=== PATIENT | male | born 1965 ===

== ENCOUNTER 2016-11-21 17:03 | Emergency (ER) | payer OTHER ==
[2016-11-21 17:06] VITALS: RESP 18
--- NOTE | 2016-11-21 18:23 | C.PDOC ---
History Of Present Illness 51 yr old male brought in via BLS, presents to the ER stating he was climbing up side of building to get to open window purportedly for 2 children who lived in that apt and didnt have keys. pt sts he lost his balance and fell, landing on his left foot and twisting it. Patient reports of pain with weight bearing. Patient denies head trauma, loc, back pain, leg pain, headache, neck pain, weakness, numbness or tingling sensation.pt unable to give clear story, unable to give clear distance fallen., sts approx 6 feet. 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) Past Medical History Reviewed: Historical Data, Nursing Documentation, Vital Signs Vital Signs: Last Vital Signs Temp 98.7 F 11/21/16 19:26 Pulse 84 11/21/16 19:26 Resp 18 11/21/16 19:26 BP 123/74 11/21/16 19:26 Pulse Ox 100 11/22/16 00:03 - Medical History PMH: Asthma Surgical History: No Surg Hx Family History: States: No Known Family Hx - Social History Hx Tobacco Use: No Hx Alcohol Use: Yes Hx Substance Use: No - Immunization History Hx Tetanus Toxoid Vaccination: No Hx Influenza Vaccination: No Hx Pneumococcal Vaccination: No Review Of Systems Except As Marked, All Systems Reviewed And Found Negative. Constitutional: Negative for: Fever, Chills Cardiovascular: Negative for: Chest Pain Respiratory: Negative for: Cough Gastrointestinal: Negative for: Abdominal Pain Musculoskeletal: Positive for: Foot Pain (Left foot ). Negative for: Neck Pain , Back Pain, Leg Pain Neurological: Negative for: Weakness, Numbness, Headache Physical Exam - Physical Exam Appears: Well, Non-toxic, No Acute Distress, Unkempt Skin: Warm, Dry, No Rash, Other (flaky skin on legs) Head: Atraumatic, Normacephalic Nose: Normal Oral Mucosa: Moist Neck: Normal, Normal ROM, No Midline Cervical Tenderness, No Paracervical Tenderness, Supple Chest: Symmetrical, No Tenderness Cardiovascular: Rhythm Regular, No Murmur Respiratory: Normal Breath Sounds, No Rales, No Rhonchi, No Stridor, No Wheezing Back: Normal Inspection, No CVA Tenderness, No Paraspinal Tenderness Extremity: Normal ROM, Tenderness (Left Lower Extremity - Mild medial malleolus swelling ), No Calf Tenderness, No Deformity, Swelling (Left Lower Extremity - Mild medial malleolus tenderness), Other (No 5th metatarcel tenderness) Pulses: Left Dorsalis Pedis: Normal, Right Dorsalis Pedis: Normal Neurological/Psych: Oriented x3, Normal Speech, Normal Motor, Normal Sensation, Normal Reflexes Gait: Steady ED Course And Treatment O2 Sat by Pulse Oximetry: 100 - Other Rad X-Ray - Left Ankle X-Ray: Viewed By Me, Read By Radiologist Interpretation: PROCEDURE: Left Ankle Radiographs. HISTORY: lat mal pain s/p fall. COMPARISON: None. FINDINGS: BONES: No acute fracture. Cortical irregularity in the calcaneus. In the clinical scenario of trauma out to this region fracture should be considered. However, the the clinical history explicitly states lateral malleolar pain. JOINTS: Normal. No osteoarthritis. Ankle mortise maintained. Talar dome intact. SOFT TISSUES: Normal. OTHER FINDINGS: None. IMPRESSION: Unremarkable distal tibia, fibula, talus. Cortical irregularity in the calcaneus which requires further evaluation/ clarification with clinical presentation. In the absence of severe trauma such as a fall, this is likely not telesales representative an acute fracture. Medical Decision Making Medical Decision Making: PLAN: * X-Ray - Left Ankle * [place] 1013 pm pt with suspiciious looking area on lefl calcaneous on xray; though pt reports no tenderness, details of his fall today unclear. ct ordered. pt has been waliing in out and out ed waiting for results of ct scan.. pt had been given earlier crutches and marie bandage to left foot and is non weightbearing. pt not fou d in ed at time of receipt of ct scan results. 1024 pm pt not in ed. message left with sister sathish at [phone] for patient to return to ED. message left with patient's cousin Karissa at [phone], that pt needs to return to ED. Karissa said she would contact his girlfirend and left her know. no other phone numbers found for pt. charge rochelle Dominguez notified. Disposition - Disposition Disposition: ELOPEMENT - ER ONLY Disposition Time: 22:00 Condition: STABLE Forms: General Discharge Instructions - Clinical Impression Clinical Impression: Calcaneal fracture - PA / TECHNICAL WRITING LEAD/MGR / Resident Statement MD/DO has reviewed & agrees with the documentation as recorded. - Scribe Statement The provider has reviewed the documentation as recorded by the Scribe Krystal Sahni All medical record entries made by the Amberibe were at my direction and personally dictated by me. I have reviewed the chart and agree that the record accurately reflects my personal performance of the history, physical exam, medical decision making, and the department course for this patient. I have also personally directed, reviewed, and agree with the discharge instructions and disposition.
--- NOTE | 2016-11-21 18:53 | RAD ---
PROCEDURE: Left Ankle Radiographs. HISTORY: lat mal pain s/p fall COMPARISON: None FINDINGS: BONES: No acute fracture. Cortical irregularity in the calcaneus. In the clinical scenario of trauma out to this region fracture should be considered. However, the the clinical history explicitly states lateral malleolar pain JOINTS: Normal. No osteoarthritis. Ankle mortise maintained. Talar dome intact SOFT TISSUES: Normal. OTHER FINDINGS: None. IMPRESSION: Unremarkable distal tibia, fibula, talus. Cortical irregularity in the calcaneus which requires further evaluation/ clarification with clinical presentation. 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
[2016-11-21 19:27] VITALS: BP 123/74; PULSE 84; TEMP 98.7
[2016-11-21 22:09] VITALS: O2SAT 100
--- NOTE | 2016-11-22 09:57 | CT ---
PROCEDURE: CT of the left ankle and foot. HISTORY: eval for calacaneal fracture COMPARISON: Comparison is made to the previous x-ray dated 11/21/2016 TECHNIQUE: Axial and reformatted coronal and sagittal CT images of the left ankle and foot were obtained without IV contrast administration. Total exam DLP: 306.9 FINDINGS: There is acute nondisplaced calcaneal fracture associated with cortical irregularity at the plantar aspect of the mid and proximal portion of the calcaneus. The fracture does not extend into the subtalar joints. There is no significant distortion in the shape of the calcaneus and no evidence of compression deformity at the calcaneal talar articulation. . There is additional nondisplaced fracture at the anterior aspect of the calcaneus extending to the sustentaculum jovon. No evidence of dislocation. The visualized portion of the distal left tibia and fibula demonstrate no acute fracture. No evidence of dislocation at the left ankle. Heterogeneous subcutaneous soft tissue edema seen around the left ankle and proximal portion of the left foot. The Achillis tendon is intact no CT evidence of tendon ruptures. No evidence of significant hematoma or fluid collection. IMPRESSION: Nondisplaced calcaneal fracture/fractures at the mid and distal portion of the calcaneal bone. The fractures do not extend to the calcaneal talar articular surface. Linear fracture at the mid calcaneus extending to sustentaculum talus region. No evidence of dislocation. Posttraumatic soft tissue changes without evidence of hematoma or discrete fluid collection.
== END 2016-11-21 19:26 | disposition left against medical advice (07) ==
LOC: C.ER 17:03
DX: S92.002A Unspecified fracture of left calcaneus, initial encounter for closed fracture (principal); W17.89XA Other fall from one level to another, initial encounter

== ENCOUNTER 2016-11-21 23:24 | Emergency (ER) | payer OTHER ==
[2016-11-22 00:07] VITALS: BP 146/86; PULSE 97; RESP 20; TEMP 97.9; O2SAT 98
--- NOTE | 2016-11-22 00:20 | C.PDOC ---
History Of Present Illness A 51 year old male presents to the emergency room with complaints of left foot pain that began today. Patient was evaluated in the ER earlier today but left prior to CT results. Patient reports that he was climb a pipe on a building, slipped and landed on his left foot. Patient denies any other trauma/injury, numbness, weakness, any sensory changes, or any other complaints. (-) head trauma Time Seen by Provider: 11/21/16 23:50 Chief Complaint (Nursing): Lower Extremity Problem/Injury History Per: Patient History/Exam Limitations: no limitations Onset/Duration Of Symptoms: Hrs Current Symptoms Are (Timing): Still Present Severity: Mild Pain Scale Rating Of: 4 Recent travel outside of the [place]: No - Ankle/Foot Description Of Injury: Fell, Struck Against Object (Floor) Past Medical History Reviewed: Historical Data, Nursing Documentation, Vital Signs Vital Signs: Last Vital Signs Temp 97.9 F 11/22/16 00:06 Pulse 97 H 11/22/16 00:06 Resp 20 11/22/16 00:06 BP 146/86 11/22/16 00:06 Pulse Ox 98 11/22/16 00:50 - Medical History PMH: Asthma Family History: States: No Known Family Hx - Social History Hx Tobacco Use: No Hx Alcohol Use: Yes Hx Substance Use: No - Immunization History Hx Tetanus Toxoid Vaccination: No Hx Influenza Vaccination: No Hx Pneumococcal Vaccination: No Review Of Systems Except As Marked, All Systems Reviewed And Found Negative. Constitutional: Negative for: Fever, Chills Gastrointestinal: Negative for: Nausea, Vomiting, Diarrhea Musculoskeletal: Positive for: Foot Pain (Left foot pain) Neurological: Negative for: Weakness, Numbness, Headache, Dizziness Physical Exam - Physical Exam Appears: Well, Non-toxic, No Acute Distress Skin: Normal Color, Warm, Dry, No Rash Head: Atraumatic, Normacephalic Eye(s): bilateral: Normal Inspection, EOMI Nose: Normal Oral Mucosa: Moist Chest: Symmetrical Respiratory: No Accessory Muscle Use Extremity: Normal ROM, Tenderness (Tenderness to left heel and plantar aspect.) , No Pedal Edema, No Calf Tenderness, No Deformity, No Swelling Pulses: Left Dorsalis Pedis: Normal, Right Dorsalis Pedis: Normal Neurological/Psych: Oriented x3, Normal Speech, Normal Cognition, Normal Motor, Normal Sensation Gait: Steady ED Course And Treatment O2 Sat by Pulse Oximetry: 98 Progress Note: Posterior splint placed by roving technician. Instructed patient to rest and ice the foot. Crutches given. On reassessment, patient is resting comfortably, and is in no acute distress. Patient was instructed to follow up with Ortho in 1-2 days for further evaluation. Disposition - Disposition Referrals: Jorgito Carvajal III, MD [Staff Provider] - Disposition: HOME/ ROUTINE Disposition Time: 00:18 Condition: STABLE Additional Instructions: Rest, ice and elevate the area. FOllow up with the bone doctor. Prescriptions: Naproxen [Naprosyn] 1 tab PO BID PRN #20 tab PRN Reason: Pain Instructions: Calcaneal Fracture (ED) - Clinical Impression Clinical Impression: Calcaneal fracture - Scribe Statement The provider has reviewed the documentation as recorded by the Scribe Rodger Salinas All medical record entries made by the Scribe were at my direction and personally dictated by me. I have reviewed the chart and agree that the record accurately reflects my personal performance of the history, physical exam, medical decision making, and the department course for this patient. I have also personally directed, reviewed, and agree with the discharge instructions and disposition.
== END 2016-11-22 00:45 | disposition home or self-care (01) ==
LOC: C.ER 23:24
DX: S92.002G Unspecified fracture of left calcaneus, subsequent encounter for fracture with delayed healing (principal); W17.89XD Other fall from one level to another, subsequent encounter

== ENCOUNTER 2016-11-23 09:50 | Emergency (ER) | payer OTHER ==
[2016-11-23 09:57] VITALS: TEMP 98.3; O2SAT 98
--- NOTE | 2016-11-23 10:32 | C.PDOC ---
History Of Present Illness 51 yr old male presents to the ER with complaints of a calcaneal fracture sustained on 11/21/2016. Patient states he was not able to follow up due to the distance and is here requesting information to what to do next. Patient denies back pain, leg pain, weakness or numbness. Time Seen by Provider: 11/23/16 10:14 Chief Complaint (Nursing): Lower Extremity Problem/Injury Past Medical History Vital Signs: Last Vital Signs Temp 98.3 F 11/23/16 09:53 Pulse 88 11/23/16 10:42 Resp 18 11/23/16 10:42 BP 132/78 11/23/16 10:42 Pulse Ox 98 11/23/16 11:11 - Medical History PMH: Asthma Family History: States: Unknown Family Hx - Social History Hx Tobacco Use: No Hx Alcohol Use: Yes Hx Substance Use: No - Immunization History Hx Tetanus Toxoid Vaccination: No Hx Influenza Vaccination: No Hx Pneumococcal Vaccination: No Review Of Systems Musculoskeletal: Positive for: Foot Pain (Left foot pain). Negative for: Back Pain, Leg Pain Neurological: Negative for: Weakness, Numbness Physical Exam - Physical Exam Appears: Well, Non-toxic, No Acute Distress Skin: Warm, Dry, No Rash Head: Atraumatic, Normacephalic Extremity: No Calf Tenderness, Other (Splint in place on left foot. ) Neurological/Psych: Oriented x3, Normal Speech, Normal Motor ED Course And Treatment O2 Sat by Pulse Oximetry: 98 Progress Note: Patient is given a Rx for Tramadol and refereed to the ortho clinic downstairs. Disposition Counseled Patient/Family Regarding: Diagnosis, Need For Followup, Rx Given - Disposition Referrals: [facility] [Outside] [facility] [Outside] Disposition: HOME/ ROUTINE Disposition Time: 10:28 Condition: GUARDED Prescriptions: traMADol/Acetaminophen [Ultracet 37.5/325 mg] 1 tab PO TID PRN #20 tab PRN Reason: pain Instructions: Foot Fracture in Adults (ED) Forms: General Discharge Instructions - POA Present On Arrival: None - Clinical Impression Clinical Impression: Calcaneal fracture - Scribe Statement The provider has reviewed the documentation as recorded by the Amberibe Krystal Sahni Provider Attestation: All medical record entries made by the Amberiblavelle were at my direction and personally dictated by me. I have reviewed the chart and agree that the record accurately reflects my personal performance of the history, physical exam, medical decision making, and the department course for this patient. I have also personally directed, reviewed, and agree with the discharge instructions and disposition.
[2016-11-23 10:43] VITALS: BP 132/78; PULSE 88; RESP 18
== END 2016-11-23 10:44 | disposition home or self-care (01) ==
LOC: C.ER 09:50
DX: S92.002G Unspecified fracture of left calcaneus, subsequent encounter for fracture with delayed healing (principal); X58.XXXD Exposure to other specified factors, subsequent encounter

== ENCOUNTER 2017-01-13 19:15 | Emergency (ER) | payer SELFPAY ==
[2017-01-13 19:53] VITALS: BP 141/95; PULSE 92; RESP 20; TEMP 98; O2SAT 99
--- NOTE | 2017-01-13 21:21 | C.PDOC ---
History Of Present Illness The patient, a 51 y/o male, presents to the ED for evaluation of right knee pain which gradually began after he sustained a fall around 1 month ago. Patient states the fall resulted in a fracture of his left lower leg, but he was able to walk using crutches at the time. Patient was able to bear weight on his right leg at the time. Patient now notes his right leg is swollen and painful, and is afraid he may have "dislocated the knee." He denies any direct injuries/trauma to the affected area and extremity numbness/weakness. Time Seen by Provider: 01/13/17 19:56 Chief Complaint (Nursing): Lower Extremity Problem/Injury History Per: Patient History/Exam Limitations: no limitations Onset/Duration Of Symptoms: Days, Gradual Current Symptoms Are (Timing): Still Present Additional History Per: Patient - Knee Description Of Injury: denies: Fell, Struck With Object, Struck Against Object, Twisted, Laceration Past Medical History Reviewed: Historical Data, Nursing Documentation, Vital Signs Vital Signs: Last Vital Signs Temp 98 F 01/13/17 19:50 Pulse 92 H 01/13/17 19:50 Resp 20 01/13/17 19:50 BP 141/95 H 01/13/17 19:50 Pulse Ox 99 01/13/17 21:39 - Medical History PMH: Asthma Surgical History: No Surg Hx Family History: States: Unknown Family Hx - Social History Hx Tobacco Use: No Hx Alcohol Use: Yes Hx Substance Use: No - Immunization History Hx Tetanus Toxoid Vaccination: No Hx Influenza Vaccination: No Hx Pneumococcal Vaccination: No Review Of Systems Musculoskeletal: Positive for: Other (right knee pain and swelling ) Neurological: Negative for: Weakness, Numbness Physical Exam - Physical Exam Appears: Non-toxic, No Acute Distress Skin: Normal Color, Warm, Dry, No Ecchymosis Head: Atraumatic Eye(s): bilateral: Normal Inspection Oral Mucosa: Moist Neck: Supple Extremity: Normal ROM, Tenderness (mild to medial posterior aspect of right knee ), No Calf Tenderness, Capillary Refill (less than 2 seconds ), No Deformity, No Swelling, Other (+slightly boggy appearance of joint noted on right lower extremity. no warmth ) Pulses: Left Dorsalis Pedis: Normal, Right Dorsalis Pedis: Normal Neurological/Psych: Normal Speech, Normal Cognition, Normal Motor, Normal Sensation Gait: Steady ED Course And Treatment O2 Sat by Pulse Oximetry: 99 (on RA) Pulse Ox Interpretation: Normal Progress Note: Right knee XR ordered and reviewed. ESTELA wrap applied to affected area, and was tolerated well by the patient. On reassessment, patient is resting comfortably, showing no signs of distress and is stable for discharge. Patient is advised to follow up with clinic within 1-2 days for further evaluation. Disposition Counseled Patient/Family Regarding: Diagnosis, Need For Followup, Rx Given - Disposition Referrals: [facility] [Outside] Disposition Time: 21:30 Additional Instructions: Please follow up in clinic Take aleve or advil for pain Leg elevation Apply warm compress Return to ER if worse Instructions: Knee Pain (ED) - Clinical Impression Clinical Impression: Knee pain, right, Arthralgia - PA / DRILL RUNNER / Resident Statement MD/DO has reviewed & agrees with the documentation as recorded. - Scribe Statement The provider has reviewed the documentation as recorded by the Scribe (Esperanza Red) All medical record entries made by the Scribe were at my direction and personally dictated by me. I have reviewed the chart and agree that the record accurately reflects my personal performance of the history, physical exam, medical decision making, and the department course for this patient. I have also personally directed, reviewed, and agree with the discharge instructions and disposition.
--- NOTE | 2017-01-14 09:22 | RAD ---
PROCEDURE: Right Knee Radiographs. HISTORY: knee pain, swelling COMPARISON: None. FINDINGS: BONES: No acute fracture. Ossification bordering the medial collateral ligament is consistent with an old medial collateral ligament injury -a Sweta-Stieda lesion JOINTS: Although not weight-bearing, the medial femoral tibial joint space appears slightly narrowed - degenerative changes here are inferred JOINT EFFUSION: None. OTHER FINDINGS: Mild medial soft tissue fullness - chronicity unknown IMPRESSION: No acute fracture. Ossification bordering the medial collateral ligament is consistent with an old medial collateral ligament injury -a Sweta-Stieda lesion
== END 2017-01-13 21:38 | disposition home or self-care (01) ==
LOC: C.ER 19:15
DX: M25.561 Pain in right knee (principal)

== ENCOUNTER 2017-12-20 22:46 | Emergency (ER) | payer MEDICAID ==
[2017-12-20] MEDS ORDERED: Albuterol-Ipratrop 3 mg / 0.5 (3 ml) UD ONE ×2 (23:02→23:50)
[2017-12-20] MEDS ORDERED: Albuterol-Ipratrop 3 mg / 0.5 (3 ml) UD INH STA ×2 (23:03→23:41)
[2017-12-20 23:46] LABS: ALB/GLOB RATIO 1.1 (1.0-2.1); ALBUMIN 4.1 g/dL (3.5-5.0); ALT/SGPT 95 U/L (21-72); AST/SGOT 193 U/L (17-59); BLOOD UREA NITROGEN 9 mg/dL (9-20); CALCIUM 8.9 mg/dl (8.6-10.4); GFR AFRICAN-AMERICAN > 60; GFR NON-AFRICAN AMERICAN > 60
[2017-12-20 23:49] LABS: BASO # 0.1 K/uL (0.0-0.2); BASO % 1.6 % (0.0-2.0); EOS # 0.5 K/uL (0.0-0.7); EOS % 10.3 % (0.0-4.0); HEMOGLOBIN 14.4 g/dL (12.0-18.0); LYMPH # 1.8 K/uL (1.0-4.3); LYMPH % 36.4 % (20.0-40.0); MEAN CORPUSCULAR HEMOGLOBIN 34.8 pg (27.0-31.0); MEAN CORPUSCULAR HGB CONC 35.1 g/dL (33.0-37.0); MONO # 0.7 K/uL (0.0-0.8); MONO % 13.8 % (0.0-10.0); NEUT # 1.9 K/uL (1.8-7.0); NEUT % 37.9 % (50.0-75.0); NRBC % 0.7 % (0.0-2.0); RBC 4.13 Mil/uL (4.40-5.90); RED CELL DISTRIBUTION WIDTH 15.3 % (11.5-14.5)
[2017-12-20 23:51] VITALS: RESP 18; O2SAT 100
[2017-12-20 23:53] LABS: MEAN CELL VOLUME 99.2 fL (80.0-94.0)
[2017-12-20 23:58] LABS: B-TYPE NATRIURETIC PEPTIDE 50.9 pg/mL (0-900)
[2017-12-21 00:04] VITALS: BP 115/84; PULSE 85; TEMP 98.9
--- NOTE | 2017-12-21 00:08 | C.PDOC ---
History Of Present Illness 52 year old male with a history of asthma presents to the emergency department with complaints of shortness of breath and a cough for the last two days . Patient denies chest pain, but states her has no prior history of intubation. Time Seen by Provider: 12/20/17 22:55 Chief Complaint (Nursing): Shortness Of Breath History Per: Patient History/Exam Limitations: no limitations Onset/Duration Of Symptoms: Days (2) Associated Symptoms: Other (cough, shortness of breath). denies: Chest Pain Past Medical History Reviewed: Historical Data, Nursing Documentation, Vital Signs Vital Signs: Last Vital Signs Temp 98.9 F 12/21/17 00:03 Pulse 85 12/21/17 00:03 Resp 18 12/21/17 00:03 BP 115/84 12/21/17 00:03 Pulse Ox 100 12/21/17 00:09 - Medical History PMH: Asthma Surgical History: No Surg Hx Family History: States: No Known Family Hx - Social History Hx Tobacco Use: No Hx Alcohol Use: Yes Hx Substance Use: No - Immunization History Hx Tetanus Toxoid Vaccination: No Hx Influenza Vaccination: No Hx Pneumococcal Vaccination: No Review Of Systems Respiratory: Positive for: Shortness of Breath Physical Exam - Physical Exam Appears: Non-toxic, No Acute Distress Skin: Warm, Dry Head: Atraumatic, Normacephalic Eye(s): bilateral: Normal Inspection Throat: Normal, No Erythema, No Exudate, No Drooling Neck: Normal Chest: Symmetrical Cardiovascular: Rhythm Regular, No Murmur Respiratory: Normal Breath Sounds, No Rales, No Rhonchi, Wheezing (expiratory wheeze) Gastrointestinal/Abdominal: Soft, No Tenderness Extremity: Normal ROM Extremity: Bilateral: Atraumatic Neurological/Psych: Oriented x3 ED Course And Treatment - Laboratory Results Result Diagrams: 12/20/17 23:29 12/20/17 23:29 ECG Rhythm: Sinus Rhythm (82) Interpretation Of ECG: Normal sinus rhythm at 82bpm with normal intervals, normal axes, no st/t wave abnormalities O2 Sat by Pulse Oximetry: 100 (RA) Pulse Ox Interpretation: Normal - Radiology CXR Interpretation: Yes: No Acute Disease, Other (hyperinflation). No: Infiltrates Medical Decision Making Medical Decision Making: After breathing treatment, patient feels better. Discharged home with diagnosis of asthma, bronchitis. Patient instructed to follow-up with clinic in two days. Disposition Counseled Patient/Family Regarding: Studies Performed, Diagnosis, Need For Followup, Rx Given - Disposition Referrals: [facility] at [facility] [Outside] Disposition: HOME/ ROUTINE Disposition Time: 00:05 Condition: IMPROVED Additional Instructions: follow up with medical clinic in 2 days call to make an appointment decrease smoking take medications as prescribed return to ER if symptoms worsens or progress Prescriptions: Albuterol HFA [Ventolin HFA 90 mcg/actuation (8 g)] 2 puff IH [id number] #1 puff Azithromycin [Zithromax] 250 mg PO DAILY #4 tab predniSONE [predniSONE Tab] 50 mg PO DAILY #4 tab Instructions: Asthma in Adults, Acute Bronchitis Forms: [facility] (Slovak), General Discharge Instructions - Clinical Impression Clinical Impression: Bronchitis, Asthma - Scribe Statement The provider has reviewed the documentation as recorded by the Scribe (Shashank Moreno) Provider Attestation: All medical record entries made by the Scribe were at my direction and personally dictated by me. I have reviewed the chart and agree that the record accurately reflects my personal performance of the history, physical exam, medical decision making, and the department course for this patient. I have also personally directed, reviewed, and agree with the discharge instructions and disposition.
--- NOTE | 2017-12-21 08:22 | RAD ---
Chest x-ray two views History: Shortness of breath. Comparison: 03/07/2015 Findings: Hyperinflation suggestive for COPD and or emphysematous changes. Biapical pleural thickening with upper lobe granulomatous changes. No focal infiltrate or effusion. Tortuous aorta. Degenerative changes in the spine. Impression: Hyperinflation suggestive for COPD and or emphysematous changes. Biapical pleural thickening with upper lobe granulomatous changes. No focal infiltrate or effusion. Tortuous aorta.
--- NOTE | 2017-12-23 13:37 | CARD ---
APPROVED REPORT EKG Measurement Heart [id number] <Conclusion> Normal sinus rhythm Possible Left atrial enlargement Left ventricular hypertrophy Abnormal ECG
== END 2017-12-21 00:41 | disposition home or self-care (01) ==
LOC: C.ER 22:46
DX: J45.909 Unspecified asthma, uncomplicated (principal)
CPT/HCPCS: 71046; 80053; 83880; 84484; 85025; 96374; 99284; J2930

== ENCOUNTER 2018-09-05 17:42 | Emergency (ER) | payer SELFPAY ==
[2018-09-05 19:18] VITALS: BP 119/77; PULSE 83; RESP 16; O2SAT 98
--- NOTE | 2018-09-05 20:10 | C.PDOC ---
History Of Present Illness 53 year old male presents to the emergency department via ambulance for alcohol abuse. Patient left with ED without being evaluated. Time Seen by Provider: 09/05/18 19:16 Chief Complaint (Nursing): Substance Abuse History Per: EMS Modifying Factor(s): Alcohol Past Medical History Reviewed: Historical Data, Nursing Documentation, Vital Signs Vital Signs: Last Vital Signs Temp Pulse 83 09/05/18 19:11 Resp 16 09/05/18 19:11 BP 119/77 09/05/18 19:11 Pulse Ox 98 09/05/18 19:11 - Medical History PMH: Asthma Family History: States: Unknown Family Hx - Social History Hx Tobacco Use: No Hx Alcohol Use: Yes Hx Substance Use: No - Immunization History Hx Tetanus Toxoid Vaccination: No Hx Influenza Vaccination: No Hx Pneumococcal Vaccination: No ED Course And Treatment O2 Sat by Pulse Oximetry: 98 Disposition - Disposition Disposition: ELOPEMENT - ER ONLY Disposition Time: 19:15 Condition: GOOD Forms: [facility] (Liberian) - Clinical Impression Clinical Impression: Alcohol abuse - Scribe Statement The provider has reviewed the documentation as recorded by the Scribe (Shashank Moreno) Provider Attestation: All medical record entries made by the Scribe were at my direction and personal ly dictated by me. I have reviewed the chart and agree that the record accurately reflects my personal performance of the history, physical exam, medical decision making, and the department course for this patient. I have also personally directed, reviewed, and agree with the discharge instructions and disposition.
== END 2018-09-05 19:18 | disposition left against medical advice (07) ==
LOC: C.ER 17:42
DX: F10.10 Alcohol abuse, uncomplicated (principal)